=== PATIENT | male | born 1995 | race Caucasian/White ===

== ENCOUNTER 2019-06-12 22:22 | Emergency (ER) | payer OTHER ==
[~2019-06-12] VITALS: Ht 180.3 cm; Wt 81.2 kg
[2019-06-12 22:28] VITALS: BP 133/81; Ht 180.3 cm; Wt 81.2 kg
== END 2019-06-13 00:10 | disposition home or self-care (01) ==
LOC: ED 22:22
DX: S01.81XA Laceration without foreign body of other part of head, initial encounter (principal); W17.89XA Other fall from one level to another, initial encounter; Y93.89 Activity, other specified; Y92.89 Other specified places as the place of occurrence of the external cause; Y99.8 Other external cause status
CPT/HCPCS: J2001